=== PATIENT | male | born 1985 | race Caucasian/White ===

== ENCOUNTER 2020-06-02 17:45 | Emergency (ER) | payer OTHER, SELFPAY ==
[~2020-06-02] VITALS: Ht 165.1 cm; Wt 95.3 kg
[2020-06-02 18:05] VITALS: BP_SYST 150
[2020-06-02 19:48] VITALS: BP_SYST 150
== END 2020-06-02 19:48 | disposition home or self-care (01) ==
LOC: SED 17:45
DX: U07.1 COVID-19 (principal)
CPT/HCPCS: 99283; U0003

== ENCOUNTER 2020-06-04 18:45 | Emergency (ER) | payer OTHER, SELFPAY ==
[~2020-06-04] VITALS: Ht 165.1 cm; Wt 95.3 kg
[2020-06-04 18:45] VITALS: BP_SYST 117
[2020-06-04 19:45] VITALS: BP_SYST 117
== END 2020-06-04 19:45 | disposition home or self-care (01) ==
LOC: SED 18:45
DX: J06.9 Acute upper respiratory infection, unspecified (principal)
CPT/HCPCS: 99281

== ENCOUNTER 2020-06-08 17:45 | Emergency (ER) | payer OTHER, SELFPAY ==
[~2020-06-08] VITALS: Ht 165.1 cm; Wt 95.3 kg
--- NOTE | 2020-06-08 17:50 | NUR ---
Patient triaged and placed in waiting room. VSS and patient appears in no acute distress at this time. Accompanied by self, awaiting available bed, and MD notified of need for MSE.
--- NOTE | 2020-06-08 17:52 | NUR ---
Pt brought by family , A&Ox4, pt presents to ER with bodyaches,chest congestion, skin pink and warm, cap refill <3, VSS, respirations even and unlabored, afebrile.
[2020-06-08 18:04] VITALS: BP_SYST 129
--- NOTE | 2020-06-08 18:25 | NUR ---
Pt moved to bed 03
--- NOTE | 2020-06-08 18:26 | NUR ---
Dr Sanchez evaluating patient at bedside
[2020-06-08 18:53] VITALS: BP_SYST 129
--- NOTE | 2020-06-08 18:54 | NUR ---
Patient given written and verbal discharge instructions and verbalizes understanding. ER MD discussed with patient the results and treatment provided. Patient in stable condition. ID arm band removed. No Rx given. Patient educated on pain management and to follow up with PMD. Pain Scale 2/10 tolerable for pt . Opportunity for questions provided and answered. Medication side effect fact sheet provided.
== END 2020-06-08 18:53 | disposition home or self-care (01) ==
LOC: SED 17:45
DX: U07.1 COVID-19 (principal)
CPT/HCPCS: 99281